=== PATIENT | female | born 1945 | race Asian ===

== ENCOUNTER 2017-12-05 06:40 | Day surgery (SDC) | payer MEDICAID ==
[2017-12-05] MEDS ORDERED: MIDAZOLAM 1 MG/ML 2 ML INJ (08:15)
[2017-12-05] MEDS ORDERED: LIDOCAINE 2% (SDV) 5 ML INJ (08:15)
[2017-12-05] MEDS ORDERED: PROPOFOL 40 ML (08:15)
== END 2017-12-05 11:03 | disposition home or self-care (01) ==
LOC: GIL 06:40
DX: Z12.11 Encounter for screening for malignant neoplasm of colon (principal); K57.90 Diverticulosis of intestine, part unspecified, without perforation or abscess without bleeding; K64.8 Other hemorrhoids; I10 Essential (primary) hypertension; E11.9 Type 2 diabetes mellitus without complications; E78.5 Hyperlipidemia, unspecified; Z79.82 Long term (current) use of aspirin; Z79.84 Long term (current) use of oral hypoglycemic drugs
CPT/HCPCS: 45378; 82962